=== PATIENT | female | born 1980 | race Caucasian/White ===

== ENCOUNTER 2019-07-28 14:52 | Emergency (ER) | payer BC ==
[~2019-07-28] VITALS: Ht 167.6 cm; Wt 72.6 kg
[~2019-07-28 14:52] MED LIST: AMOXICILLIN 50500 M1 PO
[2019-07-28 15:04] VITALS: BP 119/79
[2019-07-28] MEDS ORDERED: LEXAPRO20 MG PO (15:07)
[2019-07-28] MEDS ORDERED: NEURONTIN100 MG PO (15:07)
--- NOTE | 2019-07-29 10:33 | EKG ---
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
== END 2019-07-28 16:23 | disposition left against medical advice (07) ==
LOC: M.ERS 14:52
DX: Z53.21 Procedure and treatment not carried out due to patient leaving prior to being seen by health care provider (principal)